=== PATIENT | male | born 1940 | race Caucasian/White ===

== ENCOUNTER 2018-07-14 11:50 | Emergency (ER) | payer OTHER ==
--- NOTE | 2018-07-14 12:39 | EDPHY ---
H & P Stated Complaint: sob/coughing fits/congestion hx copd Time Seen by Provider: 07/14/18 12:39 - Personal History Current Tetanus Diphtheria and Acellular Pertussis (TDAP): Yes - Medical/Surgical History Hx Asthma: No Hx Chronic Respiratory Disease: Yes Hx Diabetes: No Hx Cardiac Disease: No Hx Renal Disease: No Hx Cirrhosis: No Hx Alcoholism: No Hx HIV/AIDS: No Hx Splenectomy or Spleen Trauma: No Other PMH: copd appy vasectomy - Social History Smoking Status: Former smoker Constitutional: Initial Vital Signs Temperature (C) 36.5 C 07/14/18 11:58 Heart Rate 70 07/14/18 11:58 Respiratory Rate 19 07/14/18 11:58 Blood Pressure 153/105 H 07/14/18 11:58 O2 Sat (%) 92 07/14/18 11:58 O2 Delivery Mode Room Air Allergies/Adverse Reactions: Penicillins Allergy (Verified 07/14/18 11:57) Home Medications: Medication Instructions Recorded Azithromycin [Zithromax] 250 mg PO DAILY #6 tab 07/14/18 Diclofenac Sodium 07/14/18 Medical Decision Making - Diagnostics Imaging Results: Imaging Impressions Chest X-Ray 07/14/18 12:46 Impression: Clear lungs. No pneumonia or acute process. Imaging: I viewed and interpreted images myself ED Course/Re-evaluation: CHIEF COMPLAINT: Shortness of breath HISTORY OF PRESENT ILLNESS: The patient is a 78 y/o male with a history of COPD complaining of shortness of breath and a cough onset 2 days ago. The patient started having cold-like symptoms 2 days ago after his and son had cold-like symptoms. He took Mucinex this morning which did not alleviate his symptoms. As the patient has a history of pneumonia and COPD his became concerned and brought him to the emergency department. The patient reports that he had an influenza vaccination this year and received a pneumonia vaccination in the past. No fever, headache, body aches, lightheadedness, chest pain, heart palpitations, abdominal pain, urinary or bowel complaints, numbness, paresthesias. REVIEW OF SYSTEMS: A comprehensive 10 system review of systems is otherwise negative aside from elements mentioned in the history of present illness and medical decision making. PHYSICAL EXAM: HR, BP, O2 Sat, RR. Temp noted General Appearance: Alert, well hydrated, appropriate, and non-toxic appearing. Head: Atraumatic without scalp tenderness or obvious injury Eyes: Pupils equal, round, reactive to light and accommodation, EOMI, no trauma , no injection. Ears: Clear bilaterally, no perforation, normal landmarks Nose: Atraumatic, no rhinorrhea, clear. Throat: There is no erythema or exudates, no lesions, normal tonsils, mucus membranes moist. Neck: Supple, 2+ carotid upstroke, nontender, no lymphadenopathy. Respiratory: Coarse rhonchi throughout with decrease breath sounds. No retractions, no distress, no wheezes, and no accessory muscle use. Cardiovascular: Regular rate and rhythm, no murmurs, rubs, or gallops. Bilateral carotid, radial, dorsalis pedis, and posterior tibial pulses intact. Good capillary refill all extremities. Gastrointestinal: Abdomen is soft, nontender, non-distended, no masses, no rebound, no guarding, no peritoneal signs. Musculoskeletal: Normal active ROM of all extremities, atraumatic. Neurological: Alert, appropriate, and interactive. The patient has normal DTRs and non-focal cranial nerves, motor, sensory, and cerebellar exam. Skin: No rashes, good turgor, no nodules on palpation. Past medical history: COPD Past surgical history: Appendectomy Family history: Denies Social history: at bedside, former smoker, lives in [place] DIAGNOSTICS/PROCEDURES/CRITICAL CARE TIME: Chest x-ray: No acute findings; no signs of pneumonia or other acute process. DIFFERENTIAL DIAGNOSIS: The differential diagnosis for the patient's shortness of breath included but was not limited to pneumonia, myocardial infarction, acute mountain sickness, high altitude pulmonary edema, congestive heart failure, and pulmonary embolus. MEDICAL DECISION MAKING: The patient is a 78 y/o male with a history of COPD presenting with shortness of breath and a cough onset 2 days ago. The patient does not look systemically ill and is not hypoxemic although he does have scattered rhonchi throughout and decreased breath sounds. This patient most likely has an upper respiratory illness. Labs and chest x-ray ordered; DuoNeb administered. 1530: I reviewed patient's chest x-ray which does not reveal any acute findings. 1531: Reassessed patient and discussed imaging findings; labs still pending. 1546: Reassessed patient and discussed negative laboratory findings. I have prescribed him a Z-pack and albuterol inhaler and advised him to take Flonase and Mucinex twice a day. Return precautions provided; patient and his are comfortable with this plan. - Data Points Laboratory Results: 07/14/18 12:50 Nasal Influenza A PCR NEGATIVE FOR FLU A (NEGATIVE) Nasal Influenza B PCR NEGATIVE FOR FLU B (NEGATIVE) Medications Given: Discontinued Medications Albuterol/Ipratropium (Duoneb) 3 ml IH EDNOW ONE Stop: 07/14/18 12:46 Last Admin: 07/14/18 12:47 Dose: 3 ml Departure - Departure Disposition: Home, Routine, Self-Care Clinical Impression: Upper respiratory infection Qualifiers: URI type: unspecified viral URI Qualified Code(s): J06.9 - Acute upper respiratory infection, unspecified Condition: Good Instructions: Upper Respiratory Infection (ED) Additional Instructions: 1. Take the Z-pack and inhaler as directed. 2. Take Flonase and Mucinex twice a day. 3. Follow up with your primary care physician within 72 hours for reevaluation. 4. Drink plenty of fluids. 5. Return to the emergency department immediately for high fever, severe headache or neck pain, difficulty breathing, abdominal pain, rash or other worsening of condition. Referrals: Bobbi Mckeon MD [Primary Care Provider] - As per Instructions Prescriptions: Azithromycin [Zithromax] 250 mg PO DAILY #6 tab Report Scribed for: Oziel Sarmiento Report Scribed by: Isabela Rosenthal Date of Report: 07/14/18 Time of Report: 12:42
[2018-07-14] MEDS ORDERED: IPRATROPIUM/ALBUTEROL 3 ML DEYVIAL ONE (12:45)
[2018-07-14] MEDS ORDERED: IPRATROPIUM/ALBUTEROL 3 ML DEYVIAL IH ONE (12:45)
[2018-07-14 13:50] VITALS: BP 146/87
== END 2018-07-14 13:52 | disposition home or self-care (01) ==
DX: J06.9 Acute upper respiratory infection, unspecified (principal)